=== PATIENT | female | born 1980 | race Asian ===

== ENCOUNTER 2017-01-21 23:08 | Inpatient (IN) | payer OTHER ==
[2017-01-21] MEDS ORDERED: AMPICILLIN SODIUM 2 GM in NS 100 ML IV ONE (23:23)
[2017-01-21] MEDS ORDERED: LR 1,000 ML IV PRN (23:23)
[2017-01-21] MEDS ORDERED: OXYTOCIN/RINGERS LACTATE 1,000 ML IV PRN (23:23)
[2017-01-21] MEDS ORDERED: TERBUTALINE SULFATE 1 MG/ML VIAL IV PRN (23:23)
[2017-01-21 23:42] LABS: % IMMATURE GRANULYOCYTES 0.6 % (0.0-1.1); ABSOLUTE IMMATURE GRANULOCYTES 0.07 10^3/uL (0.00-0.10); ADD DIFF? NO; ADD MORPH? NO; ADD SCAN? NO; ATYPICAL LYMPHOCYTE FLAG 0 (0-99); FRAGMENT RBC FLAG 0 (0-99); HEMOGLOBIN 12.9 g/dL (12.6-16.3); LEFT SHIFT FLG 0 (0-99); LIPEMIA HEMOLYSIS FLAG 90 (0-99); MEAN CELL HEMOGLOBIN 31.6 pg (27.9-34.1); MEAN CELL HEMOGLOBIN CONCENTR. 33.9 g/dL (32.4-36.7); MEAN CELL VOLUME 93.1 fL (81.5-99.8); MEAN PLATELET VOLUME 10.5 fL (8.7-11.7); PLATELET CLUMPS FLAG 10 (0-99); PLATELET COUNT 179 10^3/uL (150-400); RED BLOOD CELL COUNT 4.08 10^6/uL (4.18-5.33); RED CELL DISTRIBUTION WIDTH 13.6 % (11.5-15.2)
[2017-01-22] MEDS ORDERED: AMMONIA AROMATIC 1 EACH AMP IH ONE
[2017-01-22] MEDS ORDERED: TERBUTALINE SULFATE 1 MG/ML VIAL ONE
[2017-01-22] MEDS ORDERED: LIDOCAINE 1% 30 ML SDV ONE
[2017-01-22] MEDS ORDERED: MISOPROSTOL 200 MCG TAB ONE (00:01)
[2017-01-22] MEDS ORDERED: OXYTOCIN 10 UNIT/ML VIAL ONE (00:01)
--- NOTE | 2017-01-22 00:24 | GHP ---
DATE OF ADMISSION: 01/21/2017 ADMITTING DIAGNOSIS: Intrauterine at 38-2/7 weeks' gestation, in active labor. HISTORY OF PRESENT ILLNESS: The patient is a 36-year-old, 3, para 1-0-1-1, with a last mens trual period of 04/28/2016, and an EDC of 02/02/2017, which is confirmed by an 8-week ultrasound. S he has had good care at [facility], registration at 8 weeks' gestation. S he has had an uncomplicated course except for size less than dates. She has been monitored closely, and at 32 weeks she was measuring size less than dates. Ultrasound at that time showed an estimated weight of the 19the percentile. She continued to measure size less than dates, and an ultrasound was repeated at 38 weeks, and estimated weight was of the 6th percentile. Dopp lers were normal. ANNEMARIE was normal, but recommendations were made for induction of labor. She was sc heduled for Thursday the , and she presented in active labor in the evening of the . Contract ions are every 2 to 4 minutes. Cervix is 4 cm, -2, and she has intact. PAST OBSTETRICAL HISTORY: In December 2012, she had a spontaneous . No procedures needed. In March of 2014, she had a spontaneous vaginal delivery of a viable female, weight 6 pounds, 6 ounce s, no complications, and this is her 3rd . PAST GYNECOLOGICAL HISTORY: She has no significant past gynecological history. No abnormal Paps. No history of infections. PAST MEDICAL HISTORY: None except for anemia. PAST SURGICAL HISTORY: None. ALLERGIES: No known drug allergies. MEDICATIONS: vitamins with DHA and iron her. LAB: She is AB positive, antibody negative, RPR nonreactive, rubella immune, hepatitis negative, HI V negative. Cystic fibrosis, SMA, and fragile X negative. Pap normal. Gonorrhea chlamydia negativ e, verify normal. 1-hour GTT normal at 105. Hematocrit 36.5, and then GBS was positive. FAMILY HISTORY: Mother has chronic hypertension. Father has diabetes. Paternal uncle has cancer o f unknown type. No other medical history. SOCIAL HISTORY: She is . She lives with her and her daughter, and she works in [employer]. She denies tobacco, alcohol, and drug use. OBJECTIVE: VITAL SIGNS: She is afebrile. Vital signs are stable. PELVIC: heart tones in 130s, reactive, moderate variability, category 1. She is mahogany every 2 to 4 minutes. Cervix, per RN exam on admission, was 4, 80, -2 with active contractions. ASSESSMENT AND PLAN: A 36-year-old, 3, para 1-0-1-1, at 38-2/7 weeks' gestation, in active labor. The patient desires an epidural for pain control. She will get that soon, and will have amp icillin for GBS positive, and expectant labor management. status is reassuring. /[id number]/MODL
[2017-01-22] MEDS ORDERED: fentaNYL 100 MCG/2 ML INJ ONE (00:26)
[2017-01-22] MEDS ORDERED: BUPIVACAINE 0.25% 30 ML SDV ONE (00:26)
[2017-01-22] MEDS ORDERED: fentaNYL 2MCG/ML/BUP 0.1% RTU 100 ML BAG EP ONE (00:26)
[2017-01-22] MEDS ORDERED: PHENYLEPHRINE HCL 100 MCG/ML SYR ONE (00:26)
[2017-01-22] MEDS ORDERED: LR 500 ML IV SCH (01:30)
[2017-01-22] MEDS ORDERED: HYDROCORTISONE 0.5% CREAM TP PRN (03:02)
[2017-01-22] MEDS ORDERED: ACETAMINOPHEN 325 MG TAB PO PRN (03:02)
[2017-01-22] MEDS ORDERED: HYDROCODONE/APAP 5/325 TAB PO PRN (03:02)
[2017-01-22] MEDS ORDERED: DOCUSATE SODIUM 100 MG CAP PO PRN (03:02)
[2017-01-22] MEDS ORDERED: SIMETHICONE 80 MG TAB CHEW PO PRN (03:02)
--- NOTE | 2017-01-22 03:05 | OBPROC ---
- Labor and Delivery Onset of Contractions Date: 01/21/17 Onset of Contractions Time: 22:00 Onset of Contractions Type: Spontaneous Rupture of Membranes Date: 01/22/17 Rupture of Membranes Time: 02:24 Rupture of Membranes Type: Artificial Amniotic Fluid Color: Clear Dilation Complete Time: 02:14 Delivery Type: Spontaneous Placenta Delivery Date: 01/22/17 Placenta Delivery Time: :34 Episiotomy/Laceration: 2nd Degree, Perineal Repair: 2-0, Vicryl EBL: 300 Complications: Nuchal Cord (loose x 1) - Medications Labor Augmentation/Induction Meds Used: None Labor Augmentation/Induction Indication: Other (Specify) Anesthesia: Epidural - Info Infant A Delivery Date: 01/22/17 Delivery Time: 02:30 Sex of Infant: Male Score (1 Min): 9 Score (5 Min): 9
[2017-01-22] MEDS: AMPICILLIN SODIUM 1 GM in NS 100 ML IV SCH ×2 (04:43→07:33)
[2017-01-22] MEDS: IBUPROFEN 600 MG TAB PO PRN ×2 (11:30→18:18)
--- NOTE | 2017-01-23 09:17 | SOAPPROG ---
SOAP Progress Note Assessment/Plan: Assessment: PPD 1 1/2 s/p , IUGR mild anemia Plan: routine care 01/23/17 09:14 Subjective: Pt doing well. Bld is light. urinating fine. Baby is latching well per RN. cluster fed last noc. cramps controlled with ibu. Objective: Vital Signs Temp Pulse Resp BP Pulse Ox 36.6 C 83 18 114/78 98 01/22/17 20:47 01/22/17 20:47 01/22/17 20:47 01/22/17 20:47 01/22/17 07:37 Laboratory Results 01/22/17 08:35 01/22/17 01/23/17 01/24/17 05:59 05:59 05:59 Output Total 300 Balance -300 Physical Exam - Physical Exam General Appearance: WD/WN Abdomen: non-tender, soft, other (FF at umb -1) Pelvic Exam: vaginal bleeding (normal lochia) Extremities: non-tender, pedal edema (mild) Neuro/Psych: normal mood/affect ICD10 Worksheet Patient Problems: Problems Problem Status Onset (spontaneous vaginal delivery) Acute
[2017-01-23] MEDS: IRON POLYSAC/IRON HEME 28 MG TAB PO SCH (09:18)
[2017-01-23] MEDS: IBUPROFEN 600 MG TAB PO PRN (18:00)
--- NOTE | 2017-01-24 07:51 | SOAPPROG ---
SOAP Progress Note Assessment/Plan: Assessment: PPD 2 1/2 s/p , IUGR mild anemia Plan: routine care, d/C home 01/23/17 09:14 01/24/17 07:49 Subjective: Doing well. Bld is light. urinating fine. Baby is latching well but pt thinks inadequate and pt has been adding formula. ibu for soreness. Objective: Vital Signs Temp Pulse Resp BP Pulse Ox 36.9 C 80 18 112/60 96 01/24/17 04:00 01/24/17 04:00 01/24/17 04:00 01/24/17 04:00 01/23/17 08:00 Laboratory Results 01/22/17 08:35 Physical Exam - Physical Exam General Appearance: WD/WN Abdomen: non-tender, soft, other (Ff at umb -1) Pelvic Exam: vaginal bleeding (normal lochia) Extremities: non-tender, pedal edema (minimal) Neuro/Psych: normal mood/affect ICD10 Worksheet Patient Problems: Problems Problem Status Onset (spontaneous vaginal delivery) Acute
[2017-01-24] MEDS: IBUPROFEN 600 MG TAB PO PRN (08:08)
[2017-01-24] MEDS: IRON POLYSAC/IRON HEME 28 MG TAB PO SCH (08:09)
[2017-01-24 09:03] VITALS: BP 114/79; PULSE 71; RESP 16; TEMP 97.9; O2SAT 97
== END 2017-01-24 12:57 | disposition home or self-care (01) | DRG 775 ==
LOC: FLD 23:08 → FOB 01-22 04:20
PROVIDERS: ADMIT Obstetrics & Gynecology; ATTEND Obstetrics & Gynecology
PROC: 10E0XZZ Delivery of Products of Conception, External Approach (ICD-10-PCS; principal; 2017-01-22)
PROC: 0KQM0ZZ Repair Perineum Muscle, Open Approach (ICD-10-PCS; principal; 2017-01-22)
PROC: 10907ZC Drainage of Amniotic Fluid, Therapeutic from Products of Conception, Via Natural or Artificial Opening (ICD-10-PCS; principal; 2017-01-22)
DX: O36.5930 Maternal care for other known or suspected poor fetal growth, third trimester, not applicable or unspecified (principal); Z37.0 Single live birth; O99.824 Streptococcus B carrier state complicating childbirth; Z3A.38 38 weeks gestation of pregnancy; O99.013 Anemia complicating pregnancy, third trimester; D64.9 Anemia, unspecified; O69.82X0 Labor and delivery complicated by other cord entanglement, without compression, not applicable or unspecified; O70.1 Second degree perineal laceration during delivery
CPT/HCPCS: J0290; J2370; J2590; J3010; J3105